=== PATIENT | female | born 1980 | race Caucasian/White ===

== ENCOUNTER 2018-11-16 02:08 | Emergency (ER) | payer MEDICAID ==
[~2018-11-16] VITALS: Ht 165.1 cm; Wt 71.0 kg
[2018-11-16] MEDS ORDERED: LORAZEPAM 0.5MG TABLET PO ONE (03:00)
[2018-11-16 04:52] VITALS: BP 121/78
== END 2018-11-16 05:16 | disposition home or self-care (01) ==
LOC: ER 02:08
DX: F43.20 Adjustment disorder, unspecified (principal); R42 Dizziness and giddiness; R55 Syncope and collapse
CPT/HCPCS: 99283